=== PATIENT | female | born 1960 | race Caucasian/White ===

== ENCOUNTER 2017-09-15 16:57 | Emergency (ER) | payer MEDICAID, SELFPAY ==
[~2017-09-15] VITALS: Ht 157.5 cm; Wt 55.0 kg
[2017-09-15 17:56] LABS: BASOPHILS # (AUTO) 0.03 x10^3/uL (0-0.1); BASOPHILS % (AUTO) 0 % (0-1); EOSINOPHILS # (AUTO) 0.01 x10^3/uL (0-0.4); EOSINOPHILS % (AUTO) 0 % (1-7); LYMPHOCYTES # (AUTO) 1.42 x10^3/uL (1-3.4); LYMPHOCYTES % (AUTO) 15 % (22-44); MD NO; MEAN CORPUSCULAR HEMOGLOBIN 29.2 pg (27.0-34.8); MEAN CORPUSCULAR HGB CONC 33.6 g/dL (32.4-35.8); MEAN CORPUSCULAR VOLUME 86.9 fL (80-100); MEAN PLATELET VOLUME 6.8 fL (7.4-10.4); MONOCYTES # (AUTO) 0.31 x10^3/uL (0.2-0.8); MONOCYTES % (AUTO) 3 % (2-9); NEUTROPHILS # (AUTO) 7.81 x10^3/uL (1.8-6.8); NEUTROPHILS % (AUTO) 82 % (42-75); PLATELET COUNT 248 x10^3/uL (130-400); RED BLOOD COUNT 4.45 x10^6/uL (3.82-5.3); RED CELL DISTRIBUTION WIDTH 14.7 % (9.6-15.2)
[2017-09-15] MEDS ORDERED: SODIUM CHLORIDE 0.9% 1,000ML IVBOLUS ONE (18:00)
[2017-09-15 18:04] LABS: ALANINE AMINOTRANSFERASE 50 U/L (12-78); ALBUMIN 3.4 g/dL (3.4-5.0); ANION GAP 8 mmol/L (5-15); CALCIUM 8.4 mg/dL (8.5-10.1); CHLORIDE 112 mmol/L (98-107); CREATININE 1.36 mg/dL (0.55-1.02)
[2017-09-15 18:08] LABS: ALKALINE PHOSPHATASE 99 U/L (45-117); BILIRUBIN,TOTAL 0.2 mg/dL (0.2-1.0); TOTAL PROTEIN 6.5 g/dL (6.4-8.2); TROPONIN I < 0.015 ng/mL (0.000-0.045)
[2017-09-15 18:39] VITALS: BP 107/75
== END 2017-09-15 20:01 | disposition home or self-care (01) ==
LOC: ED 19:05
DX: R55 Syncope and collapse (principal); E86.1 Hypovolemia; F17.200 Nicotine dependence, unspecified, uncomplicated
CPT/HCPCS: 36415; 71045; 80053; 83880; 84484; 85025; 93005; 96360; 99285; J7030

== ENCOUNTER 2020-01-06 14:28 | Observation (INO) | payer MEDICAID ==
[~2020-01-06] VITALS: Ht 157.5 cm; Wt 55.5 kg
--- NOTE | 2020-01-06 14:50 | NUR ---
PT BIB EMS. PT'S NEIGHBOR CALLED EMS DUE TO PT NOT ACTING RIGHT. PER NEIGHBOR PT HAS BEEN COMPLAING OF NOT FEELING WLL X 24 HOURS. EMS ADVISED PT ON SCENE HAD A HEART RATE IN THE 30'S. EMS STATED PT'S HOUSE WAS COVERED IN FORMED FECES AND VOMIT. PT NOT RESPONDING VERBALLY TO NURSE, HOWEVER PT MAKES STATEMENTS OF FEELING COLD.
--- NOTE | 2020-01-06 14:56 | NUR ---
DR MERCADO BEDSIDE.
[2020-01-06] MEDS ORDERED: SODIUM CHLORIDE 0.9% 1,000ML IVBOLUS ONE (15:00)
[2020-01-06] MEDS ORDERED: SODIUM CHLORIDE FLUSH 10ML SYR IVF ONE (15:00)
--- NOTE | 2020-01-06 15:03 | NUR ---
ALSO PER EMS, PT WAS VOMITING ON SCENE. 4 MG ZOFRAN GIVEN AND 250 ML NS.
--- NOTE | 2020-01-06 15:19 | NUR ---
PT OFF FLOOR TO CT. FRANK MIKE TO GO WITH.
[2020-01-06] MEDS ORDERED: ONDANSETRON 2MG/ML, 2ML ONE (15:32)
[2020-01-06 15:58] LABS: ALANINE AMINOTRANSFERASE 26 U/L (12-78); ALBUMIN 3.5 g/dL (3.4-5.0); ANION GAP 5 mmol/L (5-15); CALCIUM 8.7 mg/dL (8.5-10.1); CHLORIDE 110 mmol/L (98-107); CREATININE 0.61 mg/dL (0.55-1.02)
[2020-01-06] MEDS ORDERED: ONDANSETRON 2MG/ML, 2ML IVPush ONE (16:00)
[2020-01-06 16:02] LABS: ALKALINE PHOSPHATASE 122 U/L (45-117); BILIRUBIN,TOTAL 0.4 mg/dL (0.2-1.0); CREATINE KINASE, TOTAL 96 U/L (26-192); TOTAL PROTEIN 7.2 g/dL (6.4-8.2); TROPONIN I < 0.015 ng/mL (0.000-0.045)
[2020-01-06 16:18] LABS: BASOPHILS % (AUTO) 0 % (0-1); EOSINOPHILS % (AUTO) 0 % (1-7); LYMPHOCYTES % (AUTO) 7 % (22-44); MEAN CORPUSCULAR HEMOGLOBIN 28.6 pg (27.0-34.8); MEAN CORPUSCULAR HGB CONC 33.4 g/dL (32.4-35.8); MEAN PLATELET VOLUME 6.9 fL (7.4-10.4); MONOCYTES % (AUTO) 1 % (2-9); NEUTROPHILS % (AUTO) 92 % (42-75); PLATELET COUNT 408 x10^3/uL (130-400); RED CELL DISTRIBUTION WIDTH 14.3 % (9.6-15.2)
[2020-01-06 16:26] LABS: INTERNATIONAL NORMALIZED RATIO 0.94 (0.93-1.1)
--- NOTE | 2020-01-06 16:32 | NUR ---
PT VOMITED BILEOUS LIQUID X2. PT REMAINS AGITATED, STATING SHE NEEDS HELP. DRY STOOL CLEANED FROM CYDNEY AREA AND PT COOPERATIVE FOR STRAIGHT CATH.
--- NOTE | 2020-01-06 16:38 | NUR ---
PT TALKING WITH PROVIDER. ABLE TO TELL HER THE MEDS SHE TAKES BUT CONTINUES TO PRESENT CONFUSED. KEVAN WARMER IN PLACE AND FLUIDS CONTINUES TO INFUSE.
[2020-01-06 16:43] LABS: MICROSCOPIC AUTO
[2020-01-06 16:46] LABS: AMPHETAMINE SCREEN, URINE Negative (Negative); BARBITURATE SCREEN, URINE Negative (Negative); BENZODIAZEPINE SCREEN, URINE Negative (Negative); CANNABINOID SCREEN, URINE Positive (Negative); COCAINE SCREEN, URINE Negative (Negative); METHADONE SCREEN, URINE Negative (Negative); OPIATE SCREEN, URINE Negative (Negative)
[2020-01-06] MEDS ORDERED: hydrALAzine 20 MG/ML, 1ML IV ONE (17:00)
[2020-01-06 17:12] LABS: MD SCAN
--- NOTE | 2020-01-06 17:19 | NUR ---
OUT OF APRESOLINE IN THE ED. PHARMACY CONTACTED ABOUT SENDING MORE.
[2020-01-06] MEDS ORDERED: SODIUM CHLORIDE FLUSH 10ML SYR IVF PRN (17:30)
[2020-01-06] MEDS ORDERED: hydrALAzine 20 MG/ML, 1ML ONE (17:37)
[2020-01-06] MEDS ORDERED: METOCLOPRAMIDE 5 MG/ML, 2ML IVPush PRN (18:00)
[2020-01-06] MEDS ORDERED: LORazepam 2 MG/ML, 1ML IVPush PRN (18:00)
[2020-01-06] MEDS ORDERED: ENALAPRILAT 1.25 MG/ML, 2ML IVPush PRN (18:00)
[2020-01-06] MEDS ORDERED: ONDANSETRON 2MG/ML, 2ML IVPush PRN (18:00)
[2020-01-06] MEDS ORDERED: POTASSIUM CHLORIDE 20 MEQ TAB.ER.PRT PO ONE (18:00)
[2020-01-06] MEDS ORDERED: PROMETHAZINE 25 MG/ML, 1ML IM PRN (18:00)
[2020-01-06] MEDS ORDERED: IBUPROFEN 600 MG TABLET PO PRN (18:00)
[2020-01-06] MEDS ORDERED: POLYETHYLENE GLYCOL 17 GM PACKET PO PRN (18:00)
[2020-01-06] MEDS ORDERED: LISINOPRIL 20 MG TABLET PO ONE (18:00)
[2020-01-06] MEDS ORDERED: hydrALAzine 20 MG/ML, 1ML IVPush PRN (18:00)
[2020-01-06] MEDS ORDERED: DOCUSATE 100 MG CAPSULE PO PRN (18:00)
[2020-01-06] MEDS ORDERED: MELATONIN 5 MG TABLET PO PRN (18:00)
--- NOTE | 2020-01-06 18:17 | NUR ---
IV LEFT HAND DISLODGED. PT DIFFICULT STICK WITH MULTIPLE UNSUCCESSFUL ATTEMPTS AT ESTABLISHING PIV.
[2020-01-06] MEDS ORDERED: PROMETHAZINE 25 MG/ML, 1ML ONE (18:24)
--- NOTE | 2020-01-06 18:28 | NUR ---
PT LOC IMPROVED WITH LESS CONFUSION. STATES SHE HAS FRAGILE HEALTH AND THAT SHE DOES NOT USE DRUGS AND THAT SHE DOES NOT FEEL WELL WITH VOMITING. IV ESTABLISHED AND MEDICATED FOR FOR BLOOD PRESSURE AND NAUSEA NOTED ON MAR
--- NOTE | 2020-01-06 18:53 | NUR ---
REPORT TO PATI MARIE
--- NOTE | 2020-01-06 18:58 | NUR ---
REPORT FROM SHANKAR MARIE. PT RESTING AND IS CALMER. PT ABLE TO ANSWER SOME QUESTIONS AND BP IMPROVED WITH MEDICATION. CALL LIGHT IN REACH AND BED RAILS UP
[2020-01-06 20:29] VITALS: BP 149/79
[2020-01-06 20:30] VITALS: BP 146/76
[2020-01-07 01:54] LABS: HCG UR SG 1.014 (1.003-1.030)
[2020-01-07 06:09] LABS: BASOPHILS % (AUTO) 0 % (0-1); EOSINOPHILS % (AUTO) 0 % (1-7); LYMPHOCYTES % (AUTO) 12 % (22-44); MEAN CORPUSCULAR HEMOGLOBIN 28.3 pg (27.0-34.8); MEAN CORPUSCULAR HGB CONC 33.2 g/dL (32.4-35.8); MEAN PLATELET VOLUME 6.9 fL (7.4-10.4); MONOCYTES % (AUTO) 6 % (2-9); NEUTROPHILS % (AUTO) 82 % (42-75); PLATELET COUNT 429 x10^3/uL (130-400); RED BLOOD COUNT 4.71 x10^6/uL (3.82-5.3); RED CELL DISTRIBUTION WIDTH 14.5 % (9.6-15.2)
[2020-01-07 06:14] LABS: ANION GAP 10 mmol/L (5-15); CALCIUM 9.5 mg/dL (8.5-10.1); CHLORIDE 110 mmol/L (98-107); CREATININE 1.12 mg/dL (0.55-1.02); MD NO
[2020-01-07] MEDS ORDERED: MAGNESIUM SULFATE PMX 2GM/50ML 50 ML IV ONE (07:30)
[2020-01-07] MEDS ORDERED: POTASSIUM CHLORIDE 20 MEQ TAB.ER.PRT PO ONE (07:30)
[2020-01-07 08:35] VITALS: BP 108/68
[2020-01-07] MEDS: AMLODIPINE 5 MG TABLET PO SCH (11:07)
[2020-01-07] MEDS: OMEPRAZOLE 20 MG CAPSULE.DR PO SCH (11:10)
[2020-01-07] MEDS: SENNA/DOCUSATE TABLET PO SCH (11:10)
[2020-01-07 11:13] VITALS: BP 111/69
[2020-01-07] MEDS: ACETAMINOPHEN 325 MG TABLET PO PRN (11:26)
[2020-01-07] MEDS ORDERED: POTASSIUM CHLORIDE 20 MEQ in SODIUM CHLORIDE 0.45% 1,000 ML IV SCH (11:30)
[2020-01-07] MEDS ORDERED: LORazepam 0.5MG TABLET PO PRN (11:30)
[2020-01-07 13:16] VITALS: BP 129/81
[2020-01-07] MEDS ORDERED: DIPHENHYDRAMINE 50 MG CAPSULE PO PRN (14:30)
[2020-01-07] MEDS ORDERED: BUTALB/APAP/CAFFEINE 50MG/325MG/40MG PO PRN (15:00)
[2020-01-07 20:00] VITALS: BP 112/80
[2020-01-08 01:15] VITALS: BP 106/68
[2020-01-08] MEDS: OMEPRAZOLE 20 MG CAPSULE.DR PO SCH (05:29)
[2020-01-08 06:42] VITALS: BP 106/73
[2020-01-08 06:48] LABS: ANION GAP 6 mmol/L (5-15); CALCIUM 8.4 mg/dL (8.5-10.1); CHLORIDE 113 mmol/L (98-107)
[2020-01-08 06:49] LABS: BASOPHILS % (AUTO) 0 % (0-1); EOSINOPHILS % (AUTO) 0 % (1-7); LYMPHOCYTES % (AUTO) 35 % (22-44); MEAN CORPUSCULAR HEMOGLOBIN 28.1 pg (27.0-34.8); MEAN CORPUSCULAR HGB CONC 32.7 g/dL (32.4-35.8); MEAN PLATELET VOLUME 6.7 fL (7.4-10.4); MONOCYTES % (AUTO) 7 % (2-9); NEUTROPHILS % (AUTO) 57 % (42-75); PLATELET COUNT 351 x10^3/uL (130-400); RED BLOOD COUNT 4.35 x10^6/uL (3.82-5.3); RED CELL DISTRIBUTION WIDTH 14.6 % (9.6-15.2)
[2020-01-08 07:26] LABS: MD NO
[2020-01-08] MEDS: SENNA/DOCUSATE TABLET PO SCH (09:00)
[2020-01-08] MEDS: AMLODIPINE 5 MG TABLET PO SCH (09:23)
[2020-01-08] MEDS: ACETAMINOPHEN 325 MG TABLET PO PRN (10:46)
[2020-01-08] MEDS ORDERED: IBUP-1223 PO (11:14)
[2020-01-08] MEDS ORDERED: GABA800T5 PO (11:14)
[2020-01-08] MEDS ORDERED: AMIT150T PO (11:18)
[2020-01-08] MEDS ORDERED: LURA20TA PO (11:18)
[2020-01-08] MEDS ORDERED: QUET200T4 PO (11:18)
[2020-01-08] MEDS ORDERED: BACL-19 PO (11:18)
[2020-01-08] MEDS ORDERED: OMEP-110 PO (11:18)
[2020-01-08] MEDS ORDERED: IBUPROFEN 800 MG TABLET PO PRN (12:00)
[2020-01-08] MEDS ORDERED: TEMPLATE NON-FORMULARY MED. (Gabapentin** 800 MG) PO SCH (12:00)
[2020-01-08] MEDS ORDERED: LURASIDONE 20 MG TABLET PO SCH (12:00)
[2020-01-08] MEDS ORDERED: QUETIAPINE 200 MG TABLET PO SCH (12:00)
[2020-01-08 12:20] VITALS: BP 112/77
[2020-01-08] MEDS ORDERED: BACLOFEN 10 MG TABLET PO SCH (21:00)
[2020-01-08] MEDS ORDERED: AMITRIPTYLINE 75 MG TABLET PO SCH (21:00)
== END 2020-01-08 13:17 | disposition home or self-care (01) ==
LOC: ED 17:03 → INTOOBSV 17:37 → EDIP 17:37 → 3N 20:22 → DCLOUNGE 01-08 13:00
PROVIDERS: ADMIT Internal Medicine; ATTEND Internal Medicine
DX: G93.40 Encephalopathy, unspecified (principal); R41.82 Altered mental status, unspecified; I16.0 Hypertensive urgency; E87.6 Hypokalemia; R11.0 Nausea; R73.9 Hyperglycemia, unspecified; D72.829 Elevated white blood cell count, unspecified; D47.3 Essential (hemorrhagic) thrombocythemia; F12.10 Cannabis abuse, uncomplicated; F20.9 Schizophrenia, unspecified; F30.9 Manic episode, unspecified; I10 Essential (primary) hypertension; E83.42 Hypomagnesemia; F39 Unspecified mood [affective] disorder; F15.10 Other stimulant abuse, uncomplicated; Z79.899 Other long term (current) drug therapy
CPT/HCPCS: 36415; 70450; 71045; 80048; 80053; 80307; 81001; 81025; 82140; 82550; 83690; 83735; 84100; 84145; 84443; 84484; 85025; 85610; 85730; 93005; 96361; 96365; 96372; 96375; 99285; G0378; J0360; J2060; J2405; J2550; J3475; J3480; J7030